=== PATIENT | male | born 1955 | race Caucasian/White ===

== ENCOUNTER 2019-09-18 13:15 | Outpatient (RCR) | payer OTHER, SELFPAY ==
--- NOTE | 2019-06-18 14:06 | PCPTNOTE ---
The treatment documented on this account is a continuation of the treatment documented on visit number [id number] in [employer] EMR. Please see documentation on both accounts to view progress. The Plan of Care has been transitioned and updated within the new V#. I have addressed and agree with the discipline specific Problems, Interventions, and Goals for the current certification period. Completed interventions, outcomes, and problems have been marked as Inactive to facilitate the copying of the Care plan routine for recurring accounts.
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
== END 2019-09-18 23:59 | disposition home or self-care (01) ==
LOC: ANHPT 13:15
DX: M54.12 Radiculopathy, cervical region (principal); G56.03 Carpal tunnel syndrome, bilateral upper limbs; G56.23 Lesion of ulnar nerve, bilateral upper limbs; M25.552 Pain in left hip; R60.9 Edema, unspecified
CPT/HCPCS: 97110; 97140

== ENCOUNTER 2019-10-03 14:41 | Outpatient (RCR) | payer OTHER, SELFPAY ==
--- NOTE | 2019-09-25 15:55 | PCPTNOTE ---
The treatment documented on this account is a continuation of the treatment documented on visit number [id number]. Please see documentation on both accounts to view progress. The Plan of Care has been transitioned and updated within the new V#. I have addressed and agree with the discipline specific Problems, Interventions, and Goals for the current certification period. Completed interventions, outcomes, and problems have been marked as Inactive to facilitate the copying of the Care plan routine for recurring accounts.
--- NOTE | 2019-09-25 16:08 | PCPTNOTE ---
Patient called & cancelled scheduled appointment this date due to insurance reason, per patient.
--- NOTE | 2019-09-25 17:53 | PCPTNOTE ---
The treatment documented on this account is a continuation of the treatment documented on visit number [id number]. Please see documentation on both accounts to view progress. The Plan of Care has been transitioned and updated within the new V#. I have addressed and agree with the discipline specific Problems, Interventions, and Goals for the current certification period. Completed interventions, outcomes, and problems have been marked as Inactive to facilitate the copying of the Care plan routine for recurring accounts.
--- NOTE | 2019-10-08 11:20 | PCPTNOTE ---
PHYSICAL THERAPY DISCHARGE NOTE Patient:Mitchell Lehman Sr. Date of :1955 Patient has not returned for any further treatments since 09/18/2019 and he cancelled remaining appointments due to insurance issues. He states once he resolves his insurance issues he will work to return He will be discharged from therapy at this time. The goals have been partially achieved. Thank you for referring this patient to [facility]. Please review, sign, date and return this discharge summary ANAMARIA. I have been updated about the patient's current status and I agree with discharge from the above service at this time. Referring Physician Date
== END 2019-10-08 12:25 | disposition home or self-care (01) ==
LOC: ANHPT 14:41
DX: M54.12 Radiculopathy, cervical region (principal); G56.03 Carpal tunnel syndrome, bilateral upper limbs; G56.23 Lesion of ulnar nerve, bilateral upper limbs; M25.552 Pain in left hip; R60.9 Edema, unspecified
CPT/HCPCS: 99199

== ENCOUNTER 2020-07-03 16:00 | Outpatient (RCR) | payer OTHER, SELFPAY ==
[2020-04-07 14:30] VITALS: BP_SYST 125
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
--- NOTE | 2020-04-07 15:40 | PTOPEVAL ---
PHYSICAL THERAPY EVALUATION AND DISCHARGE from PHYSICAL THERAPY Thank you for referring Mitchell Mckeon Dominik García to [facility].? Mitchell will not be scheduled for follow-up physical therapy appointments. Please review, sign, date and return this plan of care ANAMARIA. I agree with and certify that the following plan of care is medically necessary. Referring Physician Date Attending Provider: Gilson Valente, MD Evaluation Diagnosis neck pain, shoulder pain with right impingement, left labral Onset 3years Subjective Information Kendall is here today with Query Text:As Reported By Patient/ diagnosis of neck pain, Family bilateral shoulder pain with impingement in right and labral tear in left. He is also 2 weeks s/p left carpal and cubital tunnel release ( seeing occupational therapy to address/recover). Kendall reports a history of right rotator cuff tear and cervical 3-6 fusion (all several years old). Kendall reports that he has very little neck pain. Reports that right hand is losing strength and ROM and is increasing numbness since he participated in therapy at the end of 2019. Right Shoulder(s) Reported Pain Level 5 Pain Description Aching,Numbness,Sharp,Shooting ,Tingling Lowest Pain Intensity 4 Greatest Pain Intensity 8 Other Pain Aggravating Factors using the arm, raising up Neck Reported Pain Level 0 Cervical and Lumbar ROM Cervical ROM Cervical Flexion (0-60) 50 Query Text:Active in Degrees Cervical Extension (0-70) 15 Query Text:Active in Degrees Cervical Rotation Right (0-90) 60 Query Text:Active in Degrees Cervical Rotation Left (0-90) 20 Query Text:Active in Degrees Upper Extremity Range of Motion Scapular/ Shoulder Range of Motion Right Shoulder Flexion - Active 120 Shoulder Flexion - Passive 145 Shoulder Abduction - Active 110 Shoulder Abduction - Passive 125 Shoulder Medial Rotation - Active right pelvic Query Text:Reach Behind the Back Scapular/Shoulder Range of Motion right IR at 90deg abduction: Comments 20deg Left Shoulder Flexion - Active 150 Shoulder Flexion - Passive 160 Shoulder Abduction - Active 145 Shoulder Medial Rotation
--- NOTE | 2020-04-17 12:28 | PCOTNOTE ---
Patient called and cancelled today due to having no transportation.
--- NOTE | 2020-05-14 14:16 | OTOPEVAL ---
OCCUPATIONAL THERAPY RE-EVALUATION REPORT 05/14/2020 Thank you for referring Mitchell Lehman . to [facility].?Mitchell is making functional progress with the left UE and will benefit from further treatment to progress his HEP and continue to work on distal strength and coordination. The patient is scheduled to be seen for continued therapy?2x/week for 4 weeks. Please review, sign, date and return this plan of care ANAMARIA. I agree with and certify that the following plan of care is medically necessary. Referring Physician Date Referring Provider: Dr. Robson Martinez *OT Outpatient Re-Evaluation Problem Diagnosis Left UE carpal and cubital tunnel release Onset 03/24/20 Additional Evaluation Detail Mitchell has participated in the initial evaluation and only 2 treatments since . Left UE progress has been noted with ROM and strength, but progress is limited due to patient's transportation and compliance with HEP. Subjective Information Patient reports improved ROM Query Text:As Reported By Patient/ and coordination of the left Family UE. 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 He states that it continues to be difficult to manage heavy objects with the left UE due to pain and weakness. Pain Assessment Timing of Pain Assessment Timing of Pain Assessment Re-assessment Pain Scale Pain Scale Used Numeric (1 - 10) Self Report Pain Assessment Left Hand(s) Reported Pain Level 1 Pain Description Aching Lowest Pain Intensity 0 Greatest Pain Intensity 8 Left Elbow(s) Reported Pain Level 1 Pain Description Aching Lowest Pain Intensity 0 Greatest Pain Intensity 1 Pain Score Pain Score 1,1: Self Report Additional Pain Score Comments Since SOC pain at rest has decreased from 4/10 to 1/10 in the left UE. Upper Extremity Range of Motion Elbow/Forearm Range of Motion Left Elbow Flexion - Active 130 Elbow Extension - Active 0 Forearm Supination - Active 70 Forearm Pronation - Active 90 Elbow/Forearm Range of Motion Comments Elbow flexion and extension returned to being normal/ symmetrical to the right UE. Supination improved from
--- NOTE | 2020-06-18 15:43 | OTOPEVAL ---
OCCUPATIONAL THERAPY DISCHARGE NOTE 06/18/2020 Thank you for referring Mitchell Lehman to [facility]Patient appears to have reached his maximal benefit from skilled OT treatment. He is currently independent with his home exercise program. Please review, sign, date and return this D/C Note ANAMARIA. I agree with and certify that the following plan of care is medically necessary. Referring Physician Date Referring Provider: Dr. Robson Martinez *OT Outpatient Evaluation Evaluation Information Problem Diagnosis left UE carpal and cubital tunnel release Onset 03/24/20 Additional Evaluation Detail Mitchell has participated in 9 total treatment sessions since his initial evaluation from . 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 He states that he thinks the thumb has made the most progress in the past few weeks. Pain Assessment Timing of Pain Assessment Timing of Pain Assessment Re-assessment Pain Scale Pain Scale Used Numeric (1 - 10) Self Report Pain Assessment Left Hand(s) Reported Pain Level 4 Pain Description Soreness Pain Frequency Continuous Pain Score Pain Score 4: Self Report Interventions Used Interventions Used By Clinicians Education Upper Extremity Range of Motion Elbow/Forearm Range of Motion Left Elbow Flexion - Active 130 Elbow Extension - Active 0 Forearm Supination - Active 75 Forearm Pronation - Active 90 Elbow/Forearm Range of Motion Comments Elbow flexion and extension remained at functional limits. Supination improved from 70 degrees. Pronation remained at normal/ 90 degrees. Wrist Range of Motion Left Wrist Flexion - Active 55 Wrist Extension - Active 65 Wrist Radial Deviation - Active 20 Wrist Ulnar Deviation - Active 25 Wrist Range of Motion Comments Wrist flexion increased by 10 degrees Wrist extension increased by [address] improved by 5 degrees UD improved by 10 degrees Finger Range of Motion Bilateral Reason Not Measured WNL/Left,WNL/Right Finger Range of Motion Comments Pt can make composit fist on bilateral hands. Minimal to no intrins
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
--- NOTE | 2020-07-07 09:28 | PCPTNOTE ---
This treatment is being continued on visit number [id number]. Please see documentation on both accounts to view progress. Completed interventions, outcomes, and problems have been marked as Inactive to facilitate the copying of the Care plan routine for recurring accounts.
== END 2020-07-06 23:59 | disposition home or self-care (01) ==
LOC: ANHPT 16:00
PROVIDERS: PCP Family Medicine; Visit Provider Family Medicine
DX: G56.02 Carpal tunnel syndrome, left upper limb (principal); G56.22 Lesion of ulnar nerve, left upper limb
CPT/HCPCS: 97035; 97110; 97140; 97162; 97163; 97166

== ENCOUNTER 2020-09-29 14:00 | Outpatient (RCR) | payer OTHER, SELFPAY ==
[2020-07-07 00:02] VITALS: BP_SYST 125
--- NOTE | 2020-07-07 09:28 | PCPTNOTE ---
The treatment documented on this account is a continuation of the treatment documented on visit number [id number]. Please see documentation on both accounts to view progress. The Plan of Care has been transitioned and updated within the new V#. I have addressed and agree with the discipline specific Problems, Interventions, and Goals for the current certification period. Completed interventions, outcomes, and problems have been marked as Inactive to facilitate the copying of the Care plan routine for recurring accounts.
--- NOTE | 2020-07-10 13:51 | PCPTNOTE ---
Patient called & cancelled scheduled appointment this date due to not feeling well.
--- NOTE | 2020-07-16 10:16 | PCPTNOTE ---
Patient called & cancelled scheduled appointment this date and for next week due to financial difficulties. He states he will be here for his appt on 07/24/2020.
--- NOTE | 2020-07-24 14:48 | PCPTNOTE ---
Patient called & cancelled scheduled appointment this date due to having to get things taken care of.
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
== END 2020-09-30 07:55 | disposition home or self-care (01) ==
LOC: ANHPT 14:00
PROVIDERS: PCP Family Medicine; Visit Provider Family Medicine
DX: G56.02 Carpal tunnel syndrome, left upper limb (principal); G56.22 Lesion of ulnar nerve, left upper limb
CPT/HCPCS: 97110